=== PATIENT | female | born 1935 | race Caucasian/White ===

== ENCOUNTER 2018-06-28 13:04 | Emergency (ER) | payer MEDICARE ==
--- NOTE | 2018-06-28 13:42 | EDM.PDOC ---
ED HPI GENERAL MEDICAL PROBLEM - General Chief Complaint: Cardiovascular Problem Stated Complaint: HPB Time Seen by Provider: 06/28/18 14:16 Source of Information: Reports: Patient History Limitations: Reports: No Limitations - History of Present Illness INITIAL COMMENTS - FREE TEXT/NARRATIVE: HISTORY AND PHYSICAL: History of present illness: Patient is an 83-year-old female here with concern of high blood pressure. She states she was switched from valsartan 160mg to losartan 25mg BID on 06/25. She states since then her blood pressure has been 190s/90s. She states she's been feeling a little short of breath with walking and states she feels pressure behind her eyes. She denies any chest pain, left arm or jaw pain, abdominal pain , headache, nausea, vomiting, diarrhea, blurry vision. Review of systems: As per history of present illness and below otherwise all systems reviewed and negative. Past medical history: As per history of present illness and as reviewed below otherwise noncontributory. Surgical history: As per history of present illness and as reviewed below otherwise noncontributory. Social history: No reported history of drug or alcohol abuse. Family history: As per history of present illness and as reviewed below otherwise noncontributory. Physical exam: General: Patient sitting comfortably in no acute distress and nontoxic appearing HEENT: Atraumatic, normocephalic, pupils reactive, negative for conjunctival pallor or scleral icterus, mucous membranes moist, throat clear, neck supple, nontender, trachea midline. No meningeal signs. Lungs: Clear to auscultation, breath sounds equal bilaterally, chest nontender. Heart: S1S2, regular, negative for clicks, rubs, or overt murmur. Abdomen: Soft, nondistended, nontender. Negative for masses or hepatosplenomegaly. Negative for costovertebral tenderness. Pelvis: Stable nontender. Genitourinary: Deferred. Rectal: Deferred. Extremities: Atraumatic, negative for cords or calf pain. Neurovascular unremarkable. Neuro: Awake, alert, oriented. Cranial nerves II through XII unremarkable. Cerebellum unremarkable. Motor and sensory unremarkable throughout. Exam nonfocal. Notes: Blood pressure from 228/89 to 195/80. Patient reports no longer having pressure behind eyes and not currently short of breath. Diagnostics: CBC, CMP, troponin, EKG Therapeutics: Labetolol 10mg Prescriptions: None - restart valsartan 160mg and discontinue losartan 25mg BID Impression: Hypertension Plan: 1. Stop losartan and restart valsartan as discussed 2. Follow up with your primary care provider 3. Return to ED as needed as discussed Definitive disposition and diagnosis as appropriate pending reevaluation and review of above. - Related Data Allergies Allergy/AdvReac Type Severity Reaction Status Date / Time iron Allergy Stomach Verified 06/28/18 13:39 Upset Sulfa (Sulfonamide Allergy Hives Verified 06/28/18 13:39 Antibiotics) Home Meds: Home Meds Aspirin [Adult Low Dose Aspirin EC] 81 mg PO DAILY 01/04/15 [History] Metoprolol Succinate [Toprol XL] 1 tab PO BID 01/04/15 [History] Potassium Chloride [Klor-Con M20] 1 tab PO DAILY 01/04/15 [History] Pravastatin Sodium [Pravastatin (Pravachol)] 40 mg PO DAILY 01/04/15 [History] Sertraline HCl [Zoloft] 0.5 tab PO DAILY 01/04/15 [History] Glucosamine [Glucosamine Sulfate] 1 tab PO BID 06/28/18 [History] Losartan Potassium 1 tab PO BID 06/28/18 [History] hydroCHLOROthiazide [Hydrochlorothiazide] 1 tab PO DAILY 06/28/18 [History] ED ROS GENERAL - Review of Systems Review Of Systems: ROS reveals no pertinent complaints other than HPI. ED EXAM, GENERAL - Physical Exam Exam: See Below (see dictation) Course - Vital Signs Last Recorded V/S: Last Vital Signs Temp 36.4 C 06/28/18 13:35 Pulse 95 06/28/18 13:35 Resp 20 06/28/18 13:35 BP 228/89 H 06/28/18 13:35 Pulse Ox 95 06/28/18 13:35 - Orders/Labs/Meds Orders: Active Orders 24 hr Category Date Time Status EKG Documentation Completion [RC] STAT Care 06/28/18 13:42 Active Sodium Chloride 0.9% [Saline Flush] Med 06/28/18 13:43 Active 10 ml FLUSH ASDIRECTED PRN Sodium Chloride 0.9% [Saline Flush] Med 06/28/18 13:43 Active 2.5 ml FLUSH ASDIRECTED PRN Saline Lock Insert [OM.PC] Stat Oth 06/28/18 13:42 Ordered Medication Orders Sodium Chloride (Saline Flush) 10 ml FLUSH ASDIRECTED PRN PRN Reason: Keep Vein Open Sodium Chloride (Saline Flush) 2.5 ml FLUSH ASDIRECTED PRN PRN Reason: Keep Vein Open Labs: Laboratory Tests 06/28/18 06/28/18 06/28/18 Range/Units 13:55 13:55 13:55 WBC 8.05 (4.0-11.0) K/uL RBC 3.94 L (4.30-5.90) M/uL Hgb 11.2 L (12.0-16.0) g/dL Hct 34.3 L (36.0-46.0) % MCV 87.1 (80.0-98.0) fL MCH 28.4 (27.0-32.0) pg MCHC 32.7 (31.0-37.0) g/dL RDW Std Deviation 42.4 (28.0-62.0) fl RDW Coeff of Jason 13 (11.0-15.0) % Plt Count 242 (150-400) K/uL MPV 9.50 (7.40-12.00) fL Neut % (Auto) 61.7 (48.0-80.0) % Lymph % (Auto) 27.1 (16.0-40.0) % Zavala % (Auto) 8.1 (0.0-15.0) % Eos % (Auto) 2.7 (0.0-7.0) % Baso % (Auto) 0.4 (0.0-1.5) % Neut # (Auto) 5.0 (1.4-5.7) K/uL Lymph # (Auto) 2.2 (0.6-2.4) K/uL Zavala # (Auto) 0.7 (0.0-0.8) K/uL Eos # (Auto) 0.2 (0.0-0.7) K/uL Baso # (Auto) 0.0 (0.0-0.1) K/uL Nucleated RBC % 0.0 /100WBC Nucleated RBCs # 0 K/uL INR 1.00 Sodium 139 (136-145) mmol/L Potassium 3.6 (3.5-5.1) mmol/L Chloride 104 (98-107) mmol/L Carbon Dioxide 32.4 H (21.0-32.0) mmol/L BUN 15 (7.0-18.0) mg/dL Creatinine 0.8 (0.6-1.0) mg/dL Est Cr Clr Drug Dosing 49.77 mL/min Estimated GFR (MDRD) > 60.0 ml/min Glucose 95 (74-106) mg/dL Calcium 8.8 (8.5-10.1) mg/dL Total Bilirubin 0.2 (0.2-1.0) mg/dL AST 19 (15-37) IU/L ALT 32 (14-63) IU/L Alkaline Phosphatase 65 (46-116) U/L Troponin I < 0.050 (0.000-0.056) ng/mL Total Protein 6.9 (6.4-8.2) g/dL Albumin 3.2 L (3.4-5.0) g/dL Globulin 3.7 H (2.0-3.5) g/dL Albumin/Globulin Ratio 0.9 L (1.3-2.8) Meds: Medications Generic Name Dose Route Start Last Admin Trade Name Freq PRN Reason Stop Dose Admin Sodium Chloride 10 ml 06/28/18 13:43 Saline Flush FLUSH ASDIRECTED PRN Keep Vein Open Sodium Chloride 2.5 ml 06/28/18 13:43 Saline Flush FLUSH ASDIRECTED PRN Keep Vein Open Discontinued Medications Generic Name Dose Route Start Last Admin Trade Name Freq PRN Reason Stop Dose Admin Labetalol HCl 10 mg 06/28/18 13:53 06/28/18 14:17 Normodyne IVPUSH 06/28/18 13:54 10 mg NOW ONE Administration Protocol Departure - Departure Time of Disposition: 14:58 Disposition: Home, Self-Care 01 Condition: Good Clinical Impression: Hypertension Referrals: PCP,None [Primary Care Provider] - Forms: ED Department Discharge Additional Instructions: The following information is given to patients seen in the emergency department who are being discharged to home. This information is to outline your options for follow-up care. We provide all patients seen in our emergency department with a follow-up referral. The need for follow-up, as well as the timing and circumstances, are variable depending upon the specifics of your emergency department visit. If you don't have a primary care physician on staff, we will provide you with a referral. We always advise you to contact your personal physician following an emergency department visit to inform them of the circumstance of the visit and for follow-up with them and/or the need for any referrals to a consulting specialist. The emergency department will also refer you to a specialist when appropriate. This referral assures that you have the opportunity for follow-up care with a specialist. All of these measure are taken in an effort to provide you with optimal care, which includes your follow-up. Under all circumstances we always encourage you to contact your private physician who remains a resource for coordinating your care. When calling for follow-up care, please make the office aware that this follow-up is from your recent emergency room visit. If for any reason you are refused follow-up, please contact the [facility] at and asked to speak to the emergency department charge nurse. [facility] [address] [place] [id number] 1. Stop losartan and restart valsartan as discussed 2. Follow up with your primary care provider 3. Return to ED as needed as discussed - My Orders Last 24 Hours: My Active Orders 06/28/18 13:42 EKG Documentation Completion [RC] STAT Saline Lock Insert [OM.PC] Stat 06/28/18 13:43 Sodium Chloride 0.9% [Saline Flush] 10 ml FLUSH ASDIRECTED PRN Sodium Chloride 0.9% [Saline Flush] 2.5 ml FLUSH ASDIRECTED PRN - Assessment/Plan Last 24 Hours: My Active Orders 06/28/18 13:42 EKG Documentation Completion [RC] STAT Saline Lock Insert [OM.PC] Stat 06/28/18 13:43 Sodium Chloride 0.9% [Saline Flush] 10 ml FLUSH ASDIRECTED PRN Sodium Chloride 0.9% [Saline Flush] 2.5 ml FLUSH ASDIRECTED PRN
[2018-06-28] MEDS ORDERED: Sodium Chloride 0.9% 10 ML Syringe FLUSH PRN (13:43)
[2018-06-28] MEDS ORDERED: Sodium Chloride 0.9% 2.5 ML Syringe FLUSH PRN (13:43)
[2018-06-28] MEDS ORDERED: Labetalol 20 MG/4 ML Syringe IVPUSH ONE (13:53)
[2018-06-28 14:31] LABS: CHLORIDE,CL 104 mmol/L (98-107); SODIUM,NA 139 mmol/L (136-145)
[2018-06-28 17:02] VITALS: BP 198/83
== END 2018-06-28 15:01 | disposition home or self-care (01) ==
LOC: MW.ED 13:04
DX: I10 Essential (primary) hypertension (principal); Z91.09 Other allergy status, other than to drugs and biological substances; Z88.2 Allergy status to sulfonamides; Z79.82 Long term (current) use of aspirin; Z79.899 Other long term (current) drug therapy
CPT/HCPCS: 36415; 80053; 84484; 85025; 85610; 93005; 96374; 99284; J3490; 99283

== ENCOUNTER 2022-01-11 16:25 | Emergency (ER) | payer MEDICARE ==
[2022-01-11] MEDS ORDERED: Bacitracin Oint 1 GM U/D Packet TOP ONE (16:55)
[2022-01-11 17:15] VITALS: BP 137/70; PULSE 64
== END 2022-01-11 17:15 | disposition home or self-care (01) ==
LOC: MW.ED 16:25
DX: T22.211A Burn of second degree of right forearm, initial encounter (principal); I10 Essential (primary) hypertension; E03.9 Hypothyroidism, unspecified; Z88.8 Allergy status to other drugs, medicaments and biological substances; Z88.2 Allergy status to sulfonamides; Z79.82 Long term (current) use of aspirin; Z79.899 Other long term (current) drug therapy; X19.XXXA Contact with other heat and hot substances, initial encounter
CPT/HCPCS: 99283